=== PATIENT | male | born 1995 ===

== ENCOUNTER 2016-09-01 11:10 | Day surgery (SDC) | payer MEDICAID ==
[~2016-09-01] VITALS: Ht 175.3 cm; Wt 69.4 kg
[2016-09-01] VITALS (9 sets, daily range): BP systolic 110–130; BP diastolic 61–77; PULSE 67–86; RESP 15–23; O2SAT 94–100
[~2016-09-01 11:10] MED LIST: ALBU2.5V4 INHALATION; ALBU8.5H2 INHALATION; CeFAZolin Inj 2 GM in IV Premix 1 EACH IV ONE; IBUP-1827 PO; OFLO5DRO9 AFFECT_EAR
[2016-09-01] MEDS ORDERED: fentaNYL-PF 50 mCg/mL 2 mL Inj ONE (11:11)
[2016-09-01] MEDS ORDERED: Propofol 10,000 mCg/mL 20 mL Inj ONE (11:11)
[2016-09-01] MEDS ORDERED: Ondansetron 2 mg/mL 2 mL Inj ONE (11:11)
[2016-09-01] MEDS ORDERED: Glycopyrrolate 0.2 MG/ML 1mL Inj ONE (11:11)
[2016-09-01] MEDS ORDERED: Dexamethasone 4 mg/mL Inj ONE (11:11)
[2016-09-01] MEDS ORDERED: MetoCLOpramide 5 mg/mL 2 mL Inj ONE (11:11)
[2016-09-01] MEDS: Lactated Ringer's 1,000 ML IV SCH ×3 (11:21→15:25)
[2016-09-01] MEDS ORDERED: CeFAZolin Inj 2 gm / 50mL D5W IV ONE (11:22)
[2016-09-01] MEDS ORDERED: Ropivacaine-PF 0.5% 30 mL Inj INJ ONE (13:22)
[2016-09-01] MEDS ORDERED: Bacitracin 50,000 unit Inj INFILTRATE ONE (13:22)
[2016-09-01] MEDS ORDERED: Lactated Ringer's 500 ML IV PRN (14:05)
[2016-09-01] MEDS ORDERED: Phenylephrine 10,000 mCg/mL Inj IVPUSH PRN (14:05)
[2016-09-01] MEDS ORDERED: HYDROmorphone 1 mg/mL Inj IVPUSH PRN (14:05)
[2016-09-01] MEDS ORDERED: fentaNYL-PF 50 mCg/mL 2 mL Inj IVPUSH PRN (14:05)
[2016-09-01] MEDS ORDERED: EPHEDrine Sulfate 50 mg/mL Inj IVPUSH PRN (14:05)
[2016-09-01] MEDS ORDERED: hydrALAZINE 20 mg/mL Inj IVPUSH PRN (14:05)
[2016-09-01] MEDS ORDERED: Ondansetron 2 mg/mL 2 mL Inj IVPUSH PRN (14:05)
[2016-09-01] MEDS ORDERED: Labetalol 5 mg/mL 4 mL Inj IV PRN (14:05)
[2016-09-01] MEDS ORDERED: MetoCLOpramide 5 mg/mL 2 mL Inj IVPUSH PRN (14:05)
[2016-09-01] MEDS ORDERED: Atropine 0.4 mg/mL Inj IVPUSH PRN (14:05)
[2016-09-01] MEDS ORDERED: Lactated Ringer's 1,000 ML IV SCH (14:05)
--- NOTE | 2016-09-01 14:05 | PCM.HPANE ---
Patient Data Surgeon Admitting Provider: Attending Provider:Cooper Hickman MD Primary Care Physician:Diogenes Other Provider:Nahun Bangura Anesthesia Reason for Visit Right Clavical Fracture Ht/WT & BMI Height (Feet): 5 Height (Inches): 10 Weight (Kilograms): 70.58 Body Mass Index 22.00 Allergies Uncoded Allergies: BEE STINGS (Allergy, Unknown, UNKNOWN, 08/31/16) Past Anesthesia History Anesthesia History: Denies:: Anesthesia Reactions, Fam Anesthesia Reaction, Fam Malignant Hypertherm Diabetes History Hx Diabetes?: No MRSA MRSA: No Medications Reported Medications Ofloxacin 5 Ml Drops10 Ml AFFECT_EAR BID X 7 DAYS-?START DATE 08/31/16 Ibuprofen 600 Mg [id number] Mg PO QID PRN For Pain Ref 0 08/31/16 Albuterol Neb Soln 2.5 Mg/3 Ml Vial.neb2.5 Mg INHALATION Q4H PRN For Shortness of Breath Ref 0 08/31/16 Albuterol HFA (Proair HFA)8.5 Gm Hfa.aer.ad2 Puffs INHALATION Q4H PRN PRN #1 INHALER 08/31/16 Discontinued Reported Medications Ofloxacin 5 Ml Drops10 Drp AFFECT_EAR BID X 7 DAYS- ?START DATE 08/31/16 Ibuprofen 600 Mg [id number] Mg PO QID PRN For Pain Ref 0 08/31/16 Albuterol HFA 8.5 Gm Hfa.aer.ad1 Puff IH Q4 PRN For Shortness of Breath #1 INHALER Ref 0 03/22/14 Albuterol Sulfate (Albuterol 5% Inh Soln)5 Mg/1 Ml Solution5 Mg IH Q4 PRN For Wheezing #1 Ref 1 Mix in nebulizer reservoir with sodium chloride nebulizer solution. 03/22/14 History History of ENT Problems?: Yes HEENT History: Positive for:: Sinus Problem (CHRONIC RHINITIS) Denies:: Hearing Problem (HX RECURRENT OTITIS MEDIA) Hx of Heart Problems?: No Cardiovascular History: Denies:: Heart Murmur Hypertension Hx of Respiratory Problem?: Yes Respiratory History: Positive for:: Asthma (W/ FREQ. ED VISITS FOR EXASCERBATIONS) Dyspnea (INTERMITTANT WRIGHT) Use of Inhalers / NEBS Denies:: Oxygen Administration Use of C-PAP Machine (SNORES) Hx Neurologic Problems?: No Hx of GI Problems?: No Hx of Problems?: No Male Hx: Denies:: Prostate Problems Scrotal Mass Testicular Surgery Skin History: Denies:: History Skin Disorders? Pressure Ulcers Hx Musculoskeletal Problems?: Yes Musculoskeletal History: Positive for:: Musculoskeletal Trauma (FALL FX RT CLAVICLE=CURRENT PROBLEM) Hx of Psycho/Social Problems?: Yes Psycho Social History: Denies:: Anxiety Bipolar Disorder Hx Depression Hx Surgeries?: No Hx Any Other Health Problems?: No Other History: Denies:: Cancer Endocrine Disease Hospitalization Thyroid Disease History Blood Transfusions: Denies:: Blood Transfusions Hx Diabetes: No Hx Alcohol Use: Yes (PT DENIES @ TIMES, BUT WAS INTOXICATED WHEN HE FELL)Hx Substance Use: Yes (HX THC, IV DRUGS) Smoking Status: Former Smoker Have You Smoked inLast 12 mo: No Stop/Bang S-Snoring: Do You Snore Loudly: Yes T-Tired: feel tired, fatigued: No O-Obsered: Observed not breath: No P-Blood Pressure: treated: No B- Body Mass Index > 35 kg/m2: No A- Age over 50: No N- Neck Large Circumference: No G- Gender Male: Yes ZOFIA Total Score: 2 Risk Assessment Category Category 1A: Patient has history of documented sleep apnea, and HAS NOT received any narcotic, sedative or anesthesia administration during this stay. Category 1B: Patient has history of documented sleep apnea, and HAS received any narcotic , sedative or anesthesia administration during this stay Category 2: Patient has SUSPECTED Obstructive Sleep Apnea, and HAS received any narcotic , sedative or anesthesia administration during this stay. Category 3: Patient has SUSPECTED Obstructive Sleep Apnea and HAS NOT received narcotic, sedative or anesthesia administration during this stay. Category 4: Outpatient in Procedural Areas with known sleep apnea or who screen positive for High Risk via the STOP/BANG questionnaire. Exam Exam General Appearance: Alert, Oriented X3, Cooperative, No Acute Distress HEENT/AIRWAY: MP 2, Neck Movement (FROM), Mouth Opening (3 FBMO) Lungs: Clear to Auscultation, Normal Air Movement Heart: Exam Unremarkable, Regular Rate/Rhythm, No Murmurs/Rubs/Gallops Plan Impression Patient chart reviewed, patient interviewed and anesthestic plan with risks, benefits, and alternatives discussed, and informed consent obtained. NPO Status: > 8 hrs ASA Physical Status: ASA3 Severe Disease (ETOH Abuse) Anesthetic Plan: GA, Regional Block (Right shoulder block for postoperative pain control - risks of bleeding, infection, nerve damage, pneumothorax discussed. AQA. Consent signed.) Bene/Risks/Altern/Consents: Yes HP Complete Prior to Induction: Yes Gamal South MD Sep 01, 2016 11:15
[2016-09-01] MEDS ORDERED: Ketorolac 15 mg/mL Inj IVPUSH ONE (15:05)
[2016-09-01] MEDS ORDERED: HYDROcodone-APAP 5-325 mg Tablet PO PRN (15:05)
--- NOTE | 2016-09-01 15:12 | PCM.ORTHOP ---
Orthopedic Operative Report Date of Service: Sep 01, 2016 Pre Operative Diagnosis Right clavicle fracture Post Operative Diagnosis Same Procedure Right clavicle open reduction internal fixation Surgeon Surgeon: Cooper Hickman MD Assistants: Asa Martel Indication for Procedure Right clavicle fracture Findings Comminuted right mid to lateral third clavicle fracture Details of Procedure Estimated Blood Loss: 20 mL Findings: comminuted right clavicle fracture. Fluoroscopic imaging after ORIF shows good alignment of right clavicle shaft Specimens: None Patient Status: Patient was extubated and taken to recovery room in stable condition. Narrative: Indications: Laith Tena is a 21-year-old male with a right comminuted clavicle fracture after fall on outstretched hand. A clear explanation was given to the patient regarding the condition present, and the available conservative and surgical options. It was emphasized that the risks and benefits of surgery include but are not limited to infection, wound healing problems, damage to adjacent structures such as nerves, blood vessels and tendons, residential disability and pain, arthritis, hypersensitivity, deep vein thrombosis, pulmonary embolism, broken hardware, failure of surgery, need for further procedures at time of surgery or later, cast related problems, loss of limb or life. The patient was given an explanation and the patient voiced understanding of what to expect after the procedure or surgery, the limitations in activities of daily living, the likely duration for post operative recovery and the instructions that are to be followed. At the end the patient was invited to seek clarification or ask further questions but there were none. The patient voiced understanding of the entire consultation. Description of Procedure: Patient taken to operating room and transferred to operating table in supine position. Time out was performed with both anesthesia and orthopaedics present to confirm details of case to be performed. After time out performed, patient placed under general anesthesia and endotracheal tube secured into place. Once endotracheal tube secured, the patient was placed into the beach-chair position. Patient position was again checked to ensure all bony prominences adequately padded. The right arm, shoulder and clavicle was prepped and draped in the usual sterile fashion to the level of the tourniquet. An incision was made over the fracture site. Dissection was sharply performed down to bone. The bovie was used to clear soft tissue from the fracture site. Care was taken to avoid any neurovascular structures. The fracture was reduced under direct visualization. There were multiple comminuted pieces. The devitalized cortical chips were keyed in and held together by fiber tape. The plate was then applied and secured to bone with solid screw purchase. The wound was thoroughly irrigated by bulb irrigation. Hemostasis was obtained with electrocautery. The wound was closed in layers. The wound was cleaned and dressed with Xeroform, gauze, and tape. Sling was placed. The patient was extubated without difficulty and transferred to the PACU in stable condition. COSMETOLOGY EDUCATOR SURGEON: During the operation, the services of physician ophthalmic surgical assistant were medically indicated and necessary to provide exposure of the operative site for the surgical procedure and to maintain the limb in a proper position to carry out the operation safely and efficiently. Without the qualified assistant guest services manager being present, it would have extended the operative procedure and made the procedure technically more difficult to perform. Grafts, Implants: Implants-See Implant Record Complications There were no periprocedural complications identified. Condition Stable Anesthetic Administered: GA Catheters: None Output, Estimated Blood Loss: 20 Blood Admin during surgery: No Surgical Cast or Splint: Other Surgical Specimen Removed: No Specimen sent to Pathology: No copies to: Cooper Hickman MD, Christopher L MD Sep 01, 2016 15:12
--- NOTE | 2016-09-01 16:36 | PCM.ANEP1 ---
Post Anesthesia Phase 1 PACU Phase 1 Assessment Date of Service: Sep 01, 2016 Vital Signs Vital Signs Date Time Temp Pulse Resp B/P Pulse Ox O2 Delivery O2 Flow Rate FiO2 09/01/16 15:45 36.6 77 16 118/73 100 Room Air 09/01/16 15:40 36.5 67 15 110/69 94 Room Air 09/01/16 15:35 86 16 130/76 96 Room Air 09/01/16 15:30 82 23 113/61 99 Simple Mask 8 09/01/16 15:25 36.6 83 23 123/71 99 Simple Mask 8 09/01/16 11:36 36.7 74 18 122/75 97 Room Air 09/01/16 11:32 36.7 80 18 122/75 96 Room Air Anesthetic Administered: GA Level of Alertness: Awake, talking DOHERTY's with Equal Strength: Yes Pain: No Nausea or Vomiting: No Oxygen Delivery: Room Air Lungs: Clear to Auscultation, Normal Air Movement Dermatome Level: Full Sensation Gamal South MD Sep 01, 2016 16:36
--- NOTE | 2016-09-01 16:36 | PCM.ANEP2 ---
Post Anesthesia Evaluation ASA/CMS Post Anesthesia VS in Patient's Normal Range?: Yes Resp Stable; Airway Patent?: Yes CV Function & Hydration Stable: Yes Mental Status Recovered?: Yes Pain control Satisfactory?: Yes N/V Control Satisfactory?: Yes Gamal South MD Sep 01, 2016 16:36
== END 2016-09-01 23:59 | disposition home or self-care (01) ==
LOC: SAS 11:10
PROVIDERS: ATTEND Orthopaedic Surgery
DX: S42.021A Displaced fracture of shaft of right clavicle, initial encounter for closed fracture (principal); J45.909 Unspecified asthma, uncomplicated; R62.50 Unspecified lack of expected normal physiological development in childhood; W18.39XA Other fall on same level, initial encounter; Y93.01 Activity, walking, marching and hiking; Y92.9 Unspecified place or not applicable; Y99.8 Other external cause status; Z87.891 Personal history of nicotine dependence; F19.21 Other psychoactive substance dependence, in remission
CPT/HCPCS: 23515; 76001; C1713; J0690; J1100; J2250; J2405; J2765; J2795; J3010; J7120